=== PATIENT | male | born 1970 | race Caucasian/White ===

== ENCOUNTER 2020-09-21 13:28 | Emergency (ER) | payer MEDICARE, OTHER ==
[~2020-09-21] VITALS: Ht 172.7 cm; Wt 90.7 kg
[2020-09-21 15:44] LABS: HEMOGLOBIN 11.7 gm/dl (14.0-17.5); RED BLOOD COUNT 4.48 M/UL (4.20-5.50); WHITE BLOOD COUNT 9.3 K/UL (4.5-11.0)
[2020-09-21 16:19] LABS: BUN/CREATININE RATIO 22 (0-10)
[2020-09-23] MEDS ORDERED: ENTECAVIR0.5 MG PO (00:09)
== END 2020-09-23 14:10 | disposition left against medical advice (07) ==
LOC: ER1 13:28
PROVIDERS: Emergency Medicine
DX: M46.26 Osteomyelitis of vertebra, lumbar region (principal); M46.46 Discitis, unspecified, lumbar region; F17.200 Nicotine dependence, unspecified, uncomplicated; Z98.890 Other specified postprocedural states; Z53.20 Procedure and treatment not carried out because of patient's decision for unspecified reasons; Z20.822 Contact with and (suspected) exposure to COVID-19
CPT/HCPCS: 72132; 80053; 80202; 85025; 85652; 86140; 87040; 96365; 96366; 96375; 96376; 99284; J0692; J2270; J2405; J3370; J7050; J7070; Q9967; U0002